=== PATIENT | female | born 1995 | race Asian ===

== ENCOUNTER → 2022-12-16 | Emergency (ER) | payer OTHER ==
[~2022-12-16] VITALS: Ht 162.6 cm; Wt 57.2 kg
[~2022-12-16] MED LIST: IBUP-1953 PO
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
--- NOTE | 2022-12-16 19:44 | NUR ---
urine collected, sent to lab
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
--- NOTE | 2022-12-16 20:04 | NUR ---
Patient signed waiver.
--- NOTE | 2022-12-16 20:07 | NUR ---
Pt taken to CT via jeff
--- NOTE | 2022-12-16 22:19 | NUR ---
Patient discharged to home in stable condition. Written and verbal after care instructions given. Patient verbalizes understanding of instruction.
[2022-12-16 22:31] VITALS: BP 111/72
== END | disposition home or self-care (01) ==
LOC: ER 19:32
DX: S09.90XA Unspecified injury of head, initial encounter (principal); V89.2XXA Person injured in unspecified motor-vehicle accident, traffic, initial encounter; Y93.89 Activity, other specified; Y92.89 Other specified places as the place of occurrence of the external cause; Y99.8 Other external cause status
CPT/HCPCS: 70450-TC; 72125-TC; 84703-TC